=== PATIENT | female | born 1985 | race Two or more races ===

== ENCOUNTER 2018-02-13 21:29 | Emergency (ER) | payer MEDICAID ==
[~2018-02-13] VITALS: Ht 162.6 cm; Wt 56.7 kg
[2018-02-13 23:00] VITALS: BP 110/70
== END 2018-02-13 23:48 | disposition home or self-care (01) ==
LOC: ER 21:29
DX: S56.115A Strain of flexor muscle, fascia and tendon of right ring finger at forearm level, initial encounter (principal); W22.8XXA Striking against or struck by other objects, initial encounter; Y93.72 Activity, wrestling; Y92.89 Other specified places as the place of occurrence of the external cause; Y99.8 Other external cause status
CPT/HCPCS: 29130; 73140